=== PATIENT | female | born 1965 | race Caucasian/White ===

== ENCOUNTER 2017-03-09 01:18 | Inpatient (IN) | payer MEDICAID ==
[2017-03-09] MEDS ORDERED: Sodium Chloride 0.9% 1,000 ML IV ONE (01:34)
--- NOTE | 2017-03-09 01:34 | C.PDOC ---
History Of Present Illness Patient presents to the ED complaining of mid-epigastric pain that began prior to arrival. Patient also complains of nausea and vomiting. She describes the pain as sharp and stabbing. Patient reports she went out to eat tonight a few hours prior to arrival. Patient denies fever, chills, chest pain, shortness of breath, or diarrhea. Time Seen by Provider: 03/09/17 01:34 Chief Complaint (Nursing): Abdominal Pain History Per: Patient History/Exam Limitations: no limitations Onset/Duration Of Symptoms: Hrs (prior to arrival) Current Symptoms Are (Timing): Still Present Context: Food Severity: Mild Pain Scale Rating Of: 3 Location Of Pain/Discomfort: Epigastric Radiation Of Pain To:: None Quality Of Discomfort: Sharp, Stabbing, "Pain" Associated Symptoms: Nausea, Vomiting Exacerbating Factors: None Alleviating Factors: None Last Bowel Movement: Today Recent travel outside of the [place]: No Additional History Per: Patient Past Medical History Reviewed: Historical Data, Nursing Documentation, Vital Signs Vital Signs: Last Vital Signs Temp 98.2 F 03/09/17 16:36 Pulse 83 03/09/17 20:10 Resp 20 03/09/17 16:36 BP 158/98 H 03/09/17 20:10 Pulse Ox 96 03/09/17 14:22 - Medical History PMH: HTN, Sleep Apnea Family History: States: No Known Family Hx - Social History Hx Alcohol Use: No Hx Substance Use: No - Immunization History Hx Tetanus Toxoid Vaccination: No Hx Influenza Vaccination: No Hx Pneumococcal Vaccination: No Review Of Systems Constitutional: Negative for: Fever, Chills Cardiovascular: Negative for: Chest Pain Respiratory: Negative for: Shortness of Breath Gastrointestinal: Positive for: Nausea, Vomiting, Abdominal Pain. Negative for : Diarrhea Physical Exam - Physical Exam Appears: Non-toxic, No Acute Distress Skin: Warm, Dry Head: Atraumatic, Normacephalic Eye(s): bilateral: PERRL, EOMI Oral Mucosa: Moist Neck: Supple Chest: Symmetrical Cardiovascular: Rhythm Regular Respiratory: No Rales, No Rhonchi, No Wheezing Gastrointestinal/Abdominal: Soft, Tenderness (mid-epigastric), No Guarding, No Rebound Back: No CVA Tenderness Extremity: Bilateral: Atraumatic Neurological/Psych: Oriented x3 ED Course And Treatment - Laboratory Results Result Diagrams: 03/09/17 02:09 04/25/17 02:09 ECG: Interpreted By Me, Viewed By Me ECG Rhythm: Sinus Rhythm (81), Nonspecific Changes O2 Sat by Pulse Oximetry: 98 (room air) Pulse Ox Interpretation: Normal Progress Note: Plan: -EKG. -Labs. -Morphine, Pepcid, IV fluids, Zofran Disposition Discussed With Dr.: Nikki Chino Counseled Patient/Family Regarding: Studies Performed, Diagnosis - Disposition Disposition: HOSPITALIZED Disposition Time: 01:34 Condition: FAIR - Clinical Impression Clinical Impression: Abdominal pain, Acute cholecystitis - Scribe Statement The provider has reviewed the documentation as recorded by the Scribe Tina Joseph Provider Attestation: All medical record entries made by the Scribe were at my direction and personally dictated by me. I have reviewed the chart and agree that the record accurately reflects my personal performance of the history, physical exam, medical decision making, and the department course for this patient. I have also personally directed, reviewed, and agree with the discharge instructions and disposition. Decision To Admit - Pt Status Changed To: Hospital Disposition Of: Inpatient - Admit Certification Admit to Inpatient:: After my assessment, the patient will require hospitalization for at least two midnights. This is because of the severity of symptoms shown, intensity of services needed, and/or the medical risk in this patient being treated as an outpatient. - InPatient: Physician Admission Certification:: After my assessment, the patient will require hospitalization for at least two midnights. This is because of the severity of symptoms shown, intensity of services needed, and/or the medical risk in this patient being treated as an outpatient. - . Bed Request Type: Regular Admitting Physician: Nikki Chino Patient Diagnosis: Abdominal pain, Acute cholecystitis
[2017-03-09] MEDS ORDERED: Sodium Chloride 0.9% 1,000 ML ONE (02:02)
[2017-03-09 02:12] LABS: BASO % 0.6 % (0.0-2.0); EOS # 0.3 K/uL (0.0-0.7); EOS % 3.3 % (0.0-4.0); HEMATOCRIT 37.3 % (34.0-47.0); LYMPH # 1.2 K/uL (1.0-4.3); MEAN CELL VOLUME 83.7 fL (81.0-99.0); MEAN CORPUSCULAR HEMOGLOBIN 27.5 pg (27.0-31.0); MEAN CORPUSCULAR HGB CONC 32.8 g/dL (33.0-37.0); MEAN PLATELET VOLUME 8.6 fL (7.2-11.7); MONO # 0.7 K/uL (0.0-0.8); MONO % 8.9 % (0.0-10.0); RED CELL DISTRIBUTION WIDTH 13.3 % (11.5-14.5); WHITE BLOOD COUNT 7.7 K/uL (4.8-10.8)
[2017-03-09 02:21] LABS: RBC URINE 3 /hpf (0-3); URINE BILIRUBIN NEGATIVE (NEGATIVE); URINE BLOOD NEGATIVE (NEGATIVE); URINE CALCIUM OXALATE CRYSTALS MANY /hpf (<OCC); URINE COLOR Yellow (YELLOW); URINE GLUCOSE (UA) NORMAL (Normal); URINE KETONE NEGATIVE (NEGATIVE); URINE LEUKOCYTE ESTERASE NEG Leu/uL (Negative); URINE PROTEIN NEGATIVE (NEGATIVE); URINE UROBILINOGEN NORMAL mg/dL (0.2-1.0); WBC URINE 2 /hpf (0-5)
[2017-03-09 02:54] LABS: CHLORIDE 97 mmol/L (98-107); SODIUM 137 mmol/L (132-148)
[2017-03-09 02:55] LABS: POTASSIUM 3.7 mmol/L (3.6-5.2)
[2017-03-09 02:57] LABS: ALB/GLOB RATIO 1.3 (1.0-2.1); ALKALINE PHOSPHATASE 116 U/L (38-126); ALT/SGPT 27 U/L (9-52); AST/SGOT 25 U/L (14-36); BILIRUBIN,TOTAL 0.3 mg/dL (0.2-1.3); BLOOD UREA NITROGEN 13 mg/dL (7-17); CALCIUM 8.7 mg/dl (8.6-10.4); CARBON DIOXIDE 28 mmol/L (22-30); GFR AFRICAN-AMERICAN > 60; GLUCOSE,RANDOM 151 mg/dL (65-105)
[2017-03-09] MEDS ORDERED: Iodixanol 320 MG/ML 100 ML BOTTLE IV ONE (05:16)
--- NOTE | 2017-03-09 06:43 | CT ---
EXAM: CT Abdomen and Pelvis With Intravenous Contrast CLINICAL HISTORY: 51 years old, female; Pain; Abdominal pain and other: Mid upper abd; Prior surgery; Surgery type: and hernia; Additional info: Abd pain TECHNIQUE: Axial computed tomography images of the abdomen and pelvis with intravenous contrast. This CT exam was performed using one or more of the following dose reduction techniques: automated exposure control, adjustment of the mA and/or kV according to patient size, and/or use of iterative reconstruction technique. Coronal and sagittal reformatted images were created and reviewed. CONTRAST: 100 mL of [id number] administered intravenously. COMPARISON: No relevant prior studies available. FINDINGS: Lower thorax: Mild cardiomegaly. Minimal atelectasis/scarring. Small hiatal hernia. ABDOMEN: Liver: Unremarkable. No mass. Gallbladder and bile ducts: Calcified gallstones. Moderate gallbladder wall thickening. No ductal dilation. Pancreas: No ductal dilation. No mass. Spleen: No splenomegaly. Adrenals: No mass. Kidneys and ureters: No mass. No hydronephrosis. Stomach and bowel: Underdistention of LEFT colon. No definite mural thickening. No obstruction. Appendix: Normal caliber. No inflammation. PELVIS: Bladder: Unremarkable. Reproductive: Hysterectomy. ABDOMEN and PELVIS: Intraperitoneal space: No significant fluid collection. No free air. Bones/joints: No acute fracture. Soft tissues: Unremarkable. Vasculature: Unremarkable. No abdominal aortic aneurysm. Lymph nodes: No pathologically enlarged lymph nodes. IMPRESSION: 1. Findings suggestive of acute cholecystitis. Suggest ultrasound. 2. Incidental/non-acute findings are described above.
[2017-03-09] MEDS ORDERED: Metoprolol Succinate 50 mg XL Tab PO ONE (08:25)
[2017-03-09] MEDS ORDERED: HYDROmorphone 1 mg/ml ISec ONE (08:25)
[2017-03-09] MEDS: HYDROmorphone 1 mg/ml ISec IVP PRN (08:30)
[2017-03-09] MEDS: Metoprolol Succinate 50 mg XL Tab PO SCH ×2 (08:30→18:35)
--- NOTE | 2017-03-09 10:13 | US ---
HISTORY: cholelithiasis; r/o acute cholecystitis COMPARISON: March 09, 2017. CT abdomen and pelvis. None. TECHNIQUE: Sonographic evaluation of the abdomen. FINDINGS: LIVER: Measures 17.6 cm. Patent portal vein. Portal venous flow: Hepatopetal. Unremarkeable echogenicity of the liver parenchyma. No mass. No intrahepatic bile duct dilatation. GALLBLADDER: Cholelithiasis, gallbladder wall thickening and positive sonographic Sood's sign presumptive evidence for acute cholecystitis. COMMON BILE DUCT: Measures 5.2 mm. No stones. No dilatation. PANCREAS: Unremarkable as visualized. No mass. No ductal dilatation. RIGHT KIDNEY: Measures 4.3 x 10.5cm. Normal echogenicity. No calculus, mass, or hydronephrosis. LEFT KIDNEY: Measures 5.1 x 10.0cm. Normal echogenicity. No calculus, mass, or hydronephrosis. SPLEEN: Normal in size and contour. No mass. AORTA: No aneurysmal dilatation. IVC: Unremarkable. OTHER FINDINGS: None. IMPRESSION: Cholelithiasis/sonographic findings of acute cholecystitis.
--- NOTE | 2017-03-09 10:41 | CP.PCM.CON ---
Addendum entered and electronically signed by Katie Waters DO 03/09/17 14:06: OR tomorrow for [facility] Original Note: <Katie Waters - Last Filed: 03/09/17 10:35> History of Present Illness - History of Present Illness History of Present Illness: General Surgery Dr. Nassar HPI: 51 y/o F w/ PMHx of HTN, HAO presents to the ED w/ c/o acute onset abd pain, nausea, and vomiting. Pain began around 8pm last evening. Pt states pain began in her back and moved around to her abd. When asked to point to the area of worst pain, pt indicates epigastric area w/ radiation into RUQ. Pain is constant. Pt has never before had this pain. Pt admits to 2 episodes NBNB emesis before arriving in the ED. Pt admits to SOB 2/2 pain. denies F/C, CP , D/C. PMHx: HTN, HAO Meds: reviewed in chart NKDA PSHx: , hysterectomy, ventral hernia repair SHx: denies Tobacco, EtOH, Drugs FHx: unknown Review of Systems - Review of Systems All systems: reviewed and no additional remarkable complaints except (see HPI) Past Patient History - Past Medical History & Family History Past Medical History?: Yes - Past Social History Smoking Status: Never Smoked - CARDIAC Hx Hypertension: Yes - PULMONARY Hx Sleep Apnea: Yes - MUSCULOSKELETAL/RHEUMATOLOGICAL Hx Falls: No - PSYCHIATRIC Hx Substance Use: No - SURGICAL HISTORY Hx Section: Yes Hx Herniorrhaphy: Yes Hx Hysterectomy: Yes - ANESTHESIA Hx Anesthesia: Yes Hx Anesthesia Reactions: No Meds Allergies/Adverse Reactions: Allergies Allergy/AdvReac Type Severity Reaction Status Date / Time No Known Allergies Allergy Verified 03/09/17 01:31 - Medications Medications: Current Medications Famotidine (Pepcid) 40 mg PO DAILY [facility] Hydromorphone HCl (Dilaudid) 0.5 mg IVP Q6H PRN PRN Reason: Pain, severe (8-10) Losartan Potassium (Cozaar) 100 mg PO DAILY [facility] Last Admin: 03/09/17 08:29 Dose: 100 mg Metoprolol Succinate (Toprol Xl) 50 mg PO BID [facility] Last Admin: 03/09/17 08:30 Dose: 50 mg Physical Exam - Constitutional Appears: Non-toxic, No Acute Distress - Head Exam Head Exam: NORMAL INSPECTION - Eye Exam Eye Exam: Normal appearance - ENT Exam ENT Exam: Mucous Membranes Moist - Respiratory Exam Respiratory Exam: Clear to Auscultation Bilateral, NORMAL BREATHING PATTERN. absent: Accessory Muscle Use, Respiratory Distress - Cardiovascular Exam Cardiovascular Exam: REGULAR RHYTHM. absent: Bradycardia, Tachycardia - GI/Abdominal Exam GI & Abdominal Exam: Guarding (vomuntary), Soft, Tenderness (TTP epigastric & RUQ). absent: Distended Additional comments: midline suprapubic scar present (+) Sood's sign - Extremities Exam Extremities exam: Negative for: pedal edema, tenderness - Neurological Exam Neurological exam: Alert, Oriented x3 - Psychiatric Exam Psychiatric exam: Normal Affect, Normal Mood - Skin Skin Exam: Dry, Intact, Normal Color, Warm Additional comments: see abd exam Results - Vital Signs Recent Vital Signs: Last Vital Signs Temp 98.6 F 03/09/17 01:26 Pulse 78 03/09/17 07:56 Resp 18 03/09/17 07:56 BP 198/103 H 03/09/17 07:56 Pulse Ox 97 03/09/17 07:56 - Labs Result Diagrams: 03/09/17 02:09 03/09/17 02:09 - EKG Data EKG shows normal: Sinus rhythm Rate: Normal - Imaging and Cardiology CT scan - abdomen Status: Image reviewed by me, Report reviewed by me US - abdomen Status: Image reviewed by me, Report reviewed by me Assessment & Plan - Assessment and Plan (Free Text) Assessment: 51 y/o F w/ abd pain 2/2 symptomatic cholelithiasis vs acute cholecystitis - Abd US: GB wall thickening, cholelithiasis, sonographic Sood's sign - CT A/P: cholelithiasis, GB wall thickening - Zosyn 3.375 Q8 for acute cholecystitis - NPO, IVF - pain management - anti-emetic - f/u w/ GI - continue medical management - GI/DVT PPx Will discuss w/ Dr. Cesario Waters DO PGY1 <Grant Nassar - Last Filed: 03/10/17 20:11> Meds - Medications Medications: Current Medications Clonidine HCl (Catapres) 0.2 mg PO DAILY [facility] Last Admin: 03/10/17 10:07 Dose: 0.2 mg Enoxaparin Sodium (Lovenox) 40 mg SC DAILY [facility] Famotidine (Pepcid) 40 mg PO DAILY [facility] Last Admin: 03/10/17 10:09 Dose: 40 mg Hydromorphone HCl (Dilaudid) 0.5 mg IVP Q6H PRN PRN Reason: Pain, severe (8-10) Sodium Chloride (Sodium Chloride 0.9%) 1,000 mls @ 125 mls/hr IV .Q8H [facility] Last Admin: 03/10/17 06:51 Dose: 125 mls/hr Piperacillin Sod/Tazobactam Sod (Zosyn 3.375 Gm Iv Premix) 3.375 gm in 50 mls @ 100 mls/hr IVPB Q6H [facility] Last Admin: 03/10/17 15:25 Dose: Not Given Losartan Potassium (Cozaar) 100 mg PO DAILY [facility] Last Admin: 03/10/17 10:07 Dose: 100 mg Metoprolol Succinate (Toprol Xl) 50 mg PO BID [facility] Last Admin: 03/10/17 18:07 Dose: 50 mg Ondansetron HCl (Zofran Inj) 4 mg IVP Q4 PRN PRN Reason: Nausea/Vomiting Results - Vital Signs Recent Vital Signs: Last Vital Signs Temp 98 F 03/10/17 17:13 Pulse 90 03/10/17 17:13 Resp 20 03/10/17 17:13 BP 117/77 03/10/17 17:13 Pulse Ox 95 03/10/17 17:13 - Labs Result Diagrams: 03/10/17 07:05 03/10/17 07:05 Labs: Laboratory Results - last 24 hr 03/10/17 03/10/17 03/10/17 02:57 07:05 07:05 WBC 11.0 H RBC 4.72 Hgb 12.7 Hct 39.5 MCV 83.7 MCH 26.9 L MCHC 32.1 L RDW 13.3 Plt Count 307 MPV 8.8 Sodium 140 Potassium 3.8 Chloride 101 Carbon Dioxide 27 Anion Gap 16 BUN 8 Creatinine 0.7 Est GFR ( Amer) > 60 Est GFR (Non-Af Amer) > 60 Random Glucose 116 H Calcium 8.5 L Total Bilirubin 1.1 AST 39 H D ALT 33 Alkaline Phosphatase 97 Total Protein 7.2 Albumin 3.9 Globulin 3.2 Albumin/Globulin Ratio 1.2 TSH 3rd Generation 2.72 Urine Color Straw Urine Clarity Clear Urine pH 6.0 Ur Specific [place] 1.010 Urine Protein Negative Urine Glucose (UA) Normal Urine Ketones Negative Urine Blood Negative Urine Nitrate Negative Urine Bilirubin Negative Urine Urobilinogen Normal Ur Leukocyte Esterase Neg Urine WBC (Auto) < 1 Ur Squamous Epith Cells 2 Urine HCG, Qual Negative Attending/Attestation - Attestation I have personally seen and examined this patient.: Yes I have fully participated in the care of the patient.: Yes I have reviewed all pertinent clinical information: Yes Notes (Text): 03/10/17 20:10 Pt was seen and examined at bedside on 03/09/17 Agree with above note and assessment. Pt with Acute Cholecystitis Consent NPO, IVf, IV antibiotics Plan d.w pt in detail. \ Risk and benefit explained in detail.
--- NOTE | 2017-03-09 11:23 | CP.PCM.CON ---
<Zachery Guthrie - Last Filed: 03/09/17 13:25> History of Present Illness - History of Present Illness History of Present Illness: PGY4 GI Fellow Consult Note Patient is a 51yo female with PMHx significant for HTN, HAO who presented to the ED with complaint of abdominal pain. The patient developed pain between her scapulas last night at around 11PM. In the hours that followed, pain began to radiate to both flanks and eventually to her abdomen (epigastrium). At that point, pain became constant, stabbing in nature and radiated from the epigastrium toward the RUQ/LUQ. She admitted to nausea along with 2 episodes of bilious emesis. Patient took an Alleve without relief of symptoms and decided to come to the ED given severity of pain. She denies ever having symptoms like this in the past. Her dinner last night was bland and no other family members were ill today. Admits to constipation, typically passing stool 1-2 times per week. Denies any weight loss/gain, hematochezia, melena, reflux/dyspepsia. PMHx: See HPI PSHx: MARCUS, , hernia repair FHx: Father - CAD Social: Denies tobacco, EtOH or illicit drug use Endo: No prior endoscopic evaluation Review of Systems - Constitutional Constitutional: absent: Anorexia, Chills, Fever - EENT Eyes: absent: Change in Vision Nose/Mouth/Throat: absent: Sore Throat - Cardiovascular Cardiovascular: absent: Chest Pain, Dyspnea, Edema - Respiratory Respiratory: absent: Cough, Dyspnea, Excessive Mucous Production - Gastrointestinal Gastrointestinal: Abdominal Pain, Constipation, Cramping, Nausea, Vomiting. absent: Bloating, Diarrhea, Dyspepsia, Dysphagia, Heartburn, Hematemesis, Hematochezia, Melena - Genitourinary Genitourinary: absent: Dysuria, Urinary Frequency, Urinary Urgency - Musculoskeletal Musculoskeletal: Back Pain, Myalgias. absent: Neck Pain - Integumentary Integumentary: absent: New Lesions, Rash - Neurological Neurological: absent: Dizziness, Numbness, Focal Weakness - Psychiatric Psychiatric: absent: Anxiety, Depression - Endocrine Endocrine: absent: Polydipsia, Polyphagia, Polyuria - Hematologic/Lymphatic Hematologic: absent: Easy Bleeding, Easy Bruising, Lymphadenopathy Past Patient History - Past Medical History & Family History Past Medical History?: Yes - Past Social History Smoking Status: Never Smoked - CARDIAC Hx Hypertension: Yes - PULMONARY Hx Sleep Apnea: Yes - MUSCULOSKELETAL/RHEUMATOLOGICAL Hx Falls: No - PSYCHIATRIC Hx Substance Use: No - SURGICAL HISTORY Hx Section: Yes Hx Herniorrhaphy: Yes Hx Hysterectomy: Yes - ANESTHESIA Hx Anesthesia: Yes Hx Anesthesia Reactions: No Meds Allergies/Adverse Reactions: Allergies Allergy/AdvReac Type Severity Reaction Status Date / Time No Known Allergies Allergy Verified 03/09/17 01:31 - Medications Medications: Current Medications Famotidine (Pepcid) 40 mg PO DAILY [facility] Last Admin: 03/09/17 10:43 Dose: 40 mg Hydromorphone HCl (Dilaudid) 0.5 mg IVP Q6H PRN PRN Reason: Pain, severe (8-10) Losartan Potassium (Cozaar) 100 mg PO DAILY [facility] Last Admin: 03/09/17 08:29 Dose: 100 mg Metoprolol Succinate (Toprol Xl) 50 mg PO BID [facility] Last Admin: 03/09/17 08:30 Dose: 50 mg Physical Exam - Constitutional Appears: Non-toxic, No Acute Distress, Other (obese) - Eye Exam Eye Exam: EOMI, PERRL - ENT Exam ENT Exam: Mucous Membranes Moist - Respiratory Exam Respiratory Exam: Clear to Auscultation Bilateral. absent: Rales, Rhonchi, Wheezes - Cardiovascular Exam Cardiovascular Exam: RRR, +S1, +S2 - GI/Abdominal Exam GI & Abdominal Exam: Normal Bowel Sounds, Soft, Tenderness (RUQ). absent: Distended, Firm, Guarding, Organomegaly, Rigid Additional comments: +Sood sign - Extremities Exam Extremities exam: Positive for: normal inspection. Negative for: pedal edema - Neurological Exam Neurological exam: Alert, Oriented x3 - Psychiatric Exam Psychiatric exam: Normal Affect, Normal Mood - Skin Skin Exam: Dry, Warm Results - Vital Signs Recent Vital Signs: Last Vital Signs Temp 97.5 F L 03/09/17 11:04 Pulse 69 03/09/17 11:04 Resp 20 03/09/17 11:04 BP 133/88 03/09/17 11:04 Pulse Ox 97 03/09/17 11:04 - Labs Result Diagrams: 03/09/17 02:09 03/09/17 02:09 Assessment & Plan - Assessment and Plan (Free Text) Assessment: Patient is a 51yo female with PMHx significant for HTN, HAO who presented to the ED with complaint of abdominal pain -Abdominal pain -Hypertensive urgency -Morbid obesity -HAO Plan: -Imaging (CT and U/S) suggestive of acute cholecystitis with cholelithiasis noted -No ductal abnormalities noted, LFTs unremarkable -Lipase WNL, no imaging findings c/w acute pancreatitis -No plan for endoscopic evaluation at this time -Given imaging findings and positive Sood sign on examination, agree with surgical evaluation; appreciate recommendations -Defer diet recommendations to surgical service in case they plan for surgical intervention -Would benefit from outpatient eval for screening colonoscopy - Date & Time Date: 03/09/17 Time: 11:15 <Yogi Ellison - Last Filed: 03/09/17 13:43> Meds - Medications Medications: Current Medications Famotidine (Pepcid) 40 mg PO DAILY [facility] Last Admin: 03/09/17 10:43 Dose: 40 mg Hydromorphone HCl (Dilaudid) 0.5 mg IVP Q6H PRN PRN Reason: Pain, severe (8-10) Losartan Potassium (Cozaar) 100 mg PO DAILY [facility] Last Admin: 03/09/17 08:29 Dose: 100 mg Metoprolol Succinate (Toprol Xl) 50 mg PO BID [facility] Last Admin: 03/09/17 08:30 Dose: 50 mg Results - Vital Signs Recent Vital Signs: Last Vital Signs Temp 98.0 F 03/09/17 12:55 Pulse 78 03/09/17 12:55 Resp 19 03/09/17 12:55 BP 198/109 H 03/09/17 12:55 Pulse Ox 98 03/09/17 12:55 - Labs Result Diagrams: 03/09/17 02:09 03/09/17 02:09 Labs: Laboratory Results - last 24 hr 03/09/17 03/09/17 11:16 11:16 Hemoglobin A1c 5.9 Triglycerides 96 Cholesterol 200 H LDL Cholesterol Direct 123 HDL Cholesterol 45 Attending/Attestation - Attestation I have personally seen and examined this patient.: Yes I have fully participated in the care of the patient.: Yes I have reviewed all pertinent clinical information: Yes Notes (Text): 03/09/17 13:36 I have seen and examined patient with GI fellow. Agree with above documentation with the following additions. In brief, this is a 51 year old female with history of HTN, arthritis who presents to hospital with complaint of abdominal pain which began yesterday at 11 pm. Prior to this she was in usual state of health. She describes the pain as sharp, 6/10 intensity which initially began in her mid scapula and radiated to right flank and abdominal area. This was associated with nausea and two episodes of non-bloody emesis. She is typically constipated and has a bowel movement once per week. She otherwise denies fever/chills, weight loss, sick contacts, unusual food consumption, or change in bowel habits. No prior endoscopic evaluation. HTN Arthritis Obesity Abdominal pain - acute cholecystitis with +Sood's on physical examination CT and US imaging reviewed by me showing thickened GB wall with gabriel- cholecystic fluid consistent with acute cholecystitis - NPO - Suggest antibiotic therapy given clinical presentation with radiographic findings - Obtain blood culture - Surgical consultation has been requested, will follow up results - No GI intervention planned, patient would benefit from elective outpatient age appropriate screening colonoscopy following resolution of acute symptoms
[2017-03-09 11:47] LABS: CHOLESTEROL 200 mg/dL (0-199)
[2017-03-09] MEDS ORDERED: Pneumococcal 23-Valent Vaccine IM ONE (12:06)
--- NOTE | 2017-03-09 12:52 | RAD ---
HISTORY: Preop. Portable study 12:25. COMPARISON: 08/19/2016. FINDINGS: LUNGS: No active pulmonary disease. PLEURA: No significant pleural effusion identified, no pneumothorax apparent. CARDIOVASCULAR: Cardiomegaly. No evidence of acute, significant cardiovascular disease. OSSEOUS STRUCTURES: No significant abnormalities. VISUALIZED UPPER ABDOMEN: Normal. OTHER FINDINGS: None. IMPRESSION: No active disease. No significant interval change compared to the prior examination(s).
[2017-03-09] MEDS ORDERED: Piperacill/Tazo 3.375gm in Dex 50 ML IVPB SCH (14:15)
[2017-03-09] MEDS: Sodium Chloride 0.9% 1,000 ML IV SCH ×2 (15:55→23:17)
[2017-03-09] MEDS: PIPERACILL IVPB SCH ×2 (16:19→21:30)
[2017-03-09] MEDS: TAZO IVPB SCH ×2 (16:19→21:30)
[2017-03-09] MEDS: DEX IVPB SCH ×2 (16:19→21:30)
[2017-03-10] MEDS: DEX IVPB SCH ×4 (03:04→21:40)
[2017-03-10] MEDS: TAZO IVPB SCH ×4 (03:04→21:40)
[2017-03-10] MEDS: PIPERACILL IVPB SCH ×4 (03:04→21:40)
[2017-03-10 03:07] LABS: URINE BILIRUBIN NEGATIVE (NEGATIVE); URINE BLOOD NEGATIVE (NEGATIVE); URINE COLOR Straw (YELLOW); URINE GLUCOSE (UA) NORMAL (Normal); URINE KETONE NEGATIVE (NEGATIVE); URINE LEUKOCYTE ESTERASE NEG Leu/uL (Negative); URINE PROTEIN NEGATIVE (NEGATIVE); URINE UROBILINOGEN NORMAL mg/dL (0.2-1.0); WBC URINE < 1 /hpf (0-5)
[2017-03-10] MEDS: Sodium Chloride 0.9% 1,000 ML IV SCH (06:51)
[2017-03-10 07:12] LABS: HEMATOCRIT 39.5 % (34.0-47.0); MEAN CELL VOLUME 83.7 fL (81.0-99.0); MEAN CORPUSCULAR HEMOGLOBIN 26.9 pg (27.0-31.0); MEAN CORPUSCULAR HGB CONC 32.1 g/dL (33.0-37.0); MEAN PLATELET VOLUME 8.8 fL (7.2-11.7); RED CELL DISTRIBUTION WIDTH 13.3 % (11.5-14.5)
[2017-03-10 07:31] LABS: CHLORIDE 101 mmol/L (98-107); POTASSIUM 3.8 mmol/L (3.6-5.2); SODIUM 140 mmol/L (132-148)
[2017-03-10 07:34] LABS: ALB/GLOB RATIO 1.2 (1.0-2.1); ALKALINE PHOSPHATASE 97 U/L (38-126); ALT/SGPT 33 U/L (9-52); AST/SGOT 39 U/L (14-36); BILIRUBIN,TOTAL 1.1 mg/dL (0.2-1.3); BLOOD UREA NITROGEN 8 mg/dL (7-17); CARBON DIOXIDE 27 mmol/L (22-30); GFR AFRICAN-AMERICAN > 60; GLUCOSE,RANDOM 116 mg/dL (65-105); TOTAL PROTEIN 7.2 g/dL (6.3-8.3)
[2017-03-10 07:35] LABS: CALCIUM 8.5 mg/dl (8.6-10.4)
[2017-03-10 07:56] LABS: THYROID STIMULATING HORMONE 2.72 mIU/L (0.46-4.68)
--- NOTE | 2017-03-10 09:19 | HP ---
CHIEF COMPLAINT: Abdominal pain. HISTORY OF PRESENT ILLNESS: The patient is a 51-year-old female, came in Emergency Room of [facility] with mid epigastric pain that began prior to arrival. The patient also complaining of nausea and vomiting. She describes the pain as sharp and stabbing. The patient reports she went out to eat tonight a few hours prior to arrival. The patient denies fever, chills, chest pain, shortness of breath. No diarrhea, no hematuria, no hematochezia. The pain was still present when I saw patient in the ER, was on the way to ultrasound. Pain scale rating was 3. It was sharp, stabbing pain. Complaining of nausea, vomiting. PAST MEDICAL HISTORY: Hypertension, sleep apnea. FAMILY HISTORY: Father and mother noncontributory. HABITS: No smoking, no drugs, no ethanol. ALLERGIES: The patient is not allergic with any medications. HOME MEDICATIONS: Reviewed by me. Metoprolol, losartan. The patient is complaining of nausea, vomiting, abdominal pain. No diarrhea. PHYSICAL EXAMINATION: VITAL SIGNS: Temperature 98.2, pulse 83, respiratory rate 20, blood pressure 120/96, pulse oximetry 96%. HEENT: Head normocephalic, atraumatic. Eyes: PERRLA. Extraocular muscles intact. Conjunctivae pink. Eyelids unremarkable. Nose patent. NECK: Supple. No carotid bruit, no JVD, no thyromegaly. CHEST: Bilaterally symmetrical. HEART: S1, S2 positive. LUNGS: Clear to auscultation. ABDOMEN: Soft. Tender in the epigastric area. No guarding, no rebound. EXTREMITIES: Bilaterally no edema, no cyanosis, atraumatic. NEUROLOGIC: The patient is oriented x 3. Cranial nerves II-XII are grossly intact. LABORATORIES: White blood cells 7.7, hemoglobin 12.2, hematocrit 37.3, platelets 274. Sodium 137, potassium 3.7, BUN noted , creatinine 0.6, glucose 151. ASSESSMENT AND PLAN: The patient is a 51-year-old female with hyperglycemia, came with abdominal pain, acute cholecystitis. Went for CAT scan of abdomen and pelvis, looks like acute cholecystitis, suggested ultrasound. Abdominal ultrasound is reviewed by me also, cholelithiasis, sonographic finding of acute cholecystitis. Seen by Dr. Yogi Ellison, hand bunch maker. The patient has history of hypertension, obstructive sleep apnea syndrome, family history of coronary artery disease, degenerative joint disease, obesity. Suggested antibiotic therapy , presentation radiographic findings. Obtain blood cultures. No gastrointestinal intervention planned. The patient would benefit from elective outpatient age-appropriate screening colonoscopy following resolution of the acute symptoms. Seen by the surgical team also. According to them, patient will go to OR tomorrow for laparoscopic cholecystectomy as per general surgery. Gastrointestinal and deep venous thrombosis prophylaxis. Will follow up. Nikki Chino MD cc: [id number] TT: 03/10/2017 09:19:00 en MTDD
[2017-03-10] MEDS: Metoprolol Succinate 50 mg XL Tab PO SCH ×2 (10:09→18:07)
--- NOTE | 2017-03-10 11:18 | CP.PCM.PN ---
<KaitlinmayapalomaZachery - Last Filed: 03/10/17 11:15> Subjective - Date & Time of Evaluation Date of Evaluation: 03/10/17 Time of Evaluation: 06:10 - Subjective Subjective: PGY4 GI Fellow Progress Note Patient seen and examined bedside this morning. The patient admits to improvement in abdominal pain which is predominantly in the RUQ at this time. Denies any fever, chills, nausea, vomiting overnight. She is NPO for planned surgical intervention today. 12 system ROS performed and negative except where stated. Objective - Vital Signs/Intake and Output Vital Signs (last 24 hours): Temp Pulse Resp BP Pulse Ox 99 F 98 H 18 155/103 H 96 03/10/17 08:00 03/10/17 10:10 03/10/17 10:10 03/10/17 10:10 03/10/17 10:10 Intake and Output: 03/10/17 03/10/17 06:59 18:59 Intake Total 3290 Balance 3290 - Medications Medications: Current Medications Clonidine HCl (Catapres) 0.2 mg PO DAILY [facility] Last Admin: 03/10/17 10:07 Dose: 0.2 mg Enoxaparin Sodium (Lovenox) 40 mg SC DAILY [facility] Famotidine (Pepcid) 40 mg PO DAILY [facility] Last Admin: 03/10/17 10:09 Dose: 40 mg Hydromorphone HCl (Dilaudid) 0.5 mg IVP Q6H PRN PRN Reason: Pain, severe (8-10) Sodium Chloride (Sodium Chloride 0.9%) 1,000 mls @ 125 mls/hr IV .Q8H [facility] Last Admin: 03/10/17 06:51 Dose: 125 mls/hr Piperacillin Sod/Tazobactam Sod (Zosyn 3.375 Gm Iv Premix) 3.375 gm in 50 mls @ 100 mls/hr IVPB Q6H [facility] Last Admin: 03/10/17 10:18 Dose: 100 mls/hr Losartan Potassium (Cozaar) 100 mg PO DAILY [facility] Last Admin: 03/10/17 10:07 Dose: 100 mg Metoprolol Succinate (Toprol Xl) 50 mg PO BID [facility] Last Admin: 03/10/17 10:09 Dose: 50 mg - Labs Labs: 03/10/17 07:05 03/10/17 07:05 PT 10.8 SECONDS (9.7-12.2) 03/09/17 02:09 INR 1.0 03/09/17 02:09 - Constitutional Appears: Non-toxic, No Acute Distress, Other (obese) - Eye Exam Eye Exam: EOMI, PERRL - ENT Exam ENT Exam: Mucous Membranes Moist - Respiratory Exam Respiratory Exam: Clear to Ausculation Bilateral. absent: Rales, Rhonchi, Wheezes - Cardiovascular Exam Cardiovascular Exam: RRR, +S1, +S2 - GI/Abdominal Exam GI & Abdominal Exam: Soft, Tenderness (+Sood sign, RUQ tenderness), Normal Bowel Sounds. absent: Distended, Firm, Guarding, Rigid, Organomegaly - Extremities Exam Extremities Exam: Normal Inspection. absent: Pedal Edema - Neurological Exam Neurological Exam: Alert, Awake, Oriented x3 - Psychiatric Exam Psychiatric exam: Normal Affect, Normal Mood - Skin Skin Exam: Dry, Warm Assessment and Plan - Assessment and Plan (Free Text) Assessment: Patient is a 51yo female with PMHx significant for HTN, HAO who presented to the ED with complaint of abdominal pain -Abdominal pain, acute cholecystitis -Hypertensive urgency -Morbid obesity -HAO Plan: -Pt NPO for planned cholecystectomy today -BP remains elevated with diastolic at 103 this AM; recommend improved control of ongoing HTN -No plan for endoscopic evaluation at this time -Would benefit from outpatient eval for screening colonoscopy -No further recommendations at this time; will sign off <Aliyah Gutiérrez - Last Filed: 03/10/17 13:34> Objective - Vital Signs/Intake and Output Vital Signs (last 24 hours): Temp Pulse Resp BP Pulse Ox 98.9 F 90 20 109/72 96 03/10/17 12:21 03/10/17 12:21 03/10/17 12:21 03/10/17 12:21 03/10/17 12:21 Intake and Output: 03/10/17 03/10/17 06:59 18:59 Intake Total 3290 Balance 3290 - Medications Medications: Current Medications Clonidine HCl (Catapres) 0.2 mg PO DAILY [facility] Last Admin: 03/10/17 10:07 Dose: 0.2 mg Enoxaparin Sodium (Lovenox) 40 mg SC DAILY [facility] Famotidine (Pepcid) 40 mg PO DAILY [facility] Last Admin: 03/10/17 10:09 Dose: 40 mg Hydromorphone HCl (Dilaudid) 0.5 mg IVP Q6H PRN PRN Reason: Pain, severe (8-10) Sodium Chloride (Sodium Chloride 0.9%) 1,000 mls @ 125 mls/hr IV .Q8H [facility] Last Admin: 03/10/17 06:51 Dose: 125 mls/hr Piperacillin Sod/Tazobactam Sod (Zosyn 3.375 Gm Iv Premix) 3.375 gm in 50 mls @ 100 mls/hr IVPB Q6H [facility] Last Admin: 03/10/17 10:18 Dose: 100 mls/hr Losartan Potassium (Cozaar) 100 mg PO DAILY [facility] Last Admin: 03/10/17 10:07 Dose: 100 mg Metoprolol Succinate (Toprol Xl) 50 mg PO BID [facility] Last Admin: 03/10/17 10:09 Dose: 50 mg - Labs Labs: 03/10/17 07:05 03/10/17 07:05 PT 10.8 SECONDS (9.7-12.2) 03/09/17 02:09 INR 1.0 03/09/17 02:09 Attending/Attestation - Attestation I have personally seen and examined this patient.: Yes I have fully participated in the care of the patient.: Yes I have reviewed all pertinent clinical information, including history, physical exam and plan: Yes Notes (Text): Patient seen and examined with GI fellow. Agree with his note as documented above with the following additions/exceptions. This is a 51 year old female with PMHx significant for HTN, HAO who presents with abdominal pain due to acute cholecystitis. She has RUQ abdominal pain currently, no nausea or vomiting. She is planned for OR for cholecystectomy today. Her LFTs are unremarkable and bile duct normal on imaging. Further management as per surgical team. She would benefit from outpatient elective screening colonoscopy. Please call with any further questions/concerns. 03/10/17 13:32
[2017-03-10] MEDS ORDERED: ceFAZolin 1 gm FROZEN Premix 2 GM/100 ML ML IVPB ONE (13:04)
[2017-03-10] MEDS ORDERED: Bupivacaine/Epi 0.25%-1:200,000 10 ml PF inj IJ ONE (13:04)
[2017-03-10] MEDS ORDERED: Lidocaine 1% Inj (20ml) ONE (13:05)
[2017-03-10] MEDS ORDERED: Lactated Ringer's 1,000 ML IV ONE ×2 (13:12→15:15)
[2017-03-10] MEDS ORDERED: Midazolam 2 MG/2 ML VIAL ONE (13:16)
[2017-03-10] MEDS ORDERED: Propofol 10 mg/ml Inj (20 ML) ONE (13:16)
[2017-03-10] MEDS ORDERED: Rocuronium 10 mg/ml (5 ml) ONE (14:46)
[2017-03-10] MEDS ORDERED: Neostigmine Methylsulfate 3mg/3ml Syringe IV ONE (15:21)
[2017-03-10] MEDS ORDERED: Morphine 4 MG/ML VIAL ONE (15:27)
--- NOTE | 2017-03-10 15:41 | PCM.SURG1 ---
Surgeon's Initial Post Op Note - Surgeon's Notes Surgeon: Dr. Nassar Marketing Analytics Specialist: Dr. Dias PGY-2, Ruby RIVERA Type of Anesthesia: General Endo, Local Pre-Operative Diagnosis: Acute cholecystitis Operative Findings: Acute necrotic, gangrenous cholecystitis with perihepatic adhesions Post-Operative Diagnosis: Acute gangrenous cholecystitis, gabriel hepatic lesions Operation Performed: Laparoscopic cholecystectomy, lysis of adhesions Specimen/Specimens Removed: gallbladder Estimated Blood Loss: EBL {In ML}: 50 Drains Used: Ruben Post-Op Condition: Fair Date of Surgery/Procedure: 03/10/17 Time of Surgery/Procedure: 15:41
[2017-03-10] MEDS ORDERED: HYDROmorphone 0.5 mg/0.5 ml ISec IVP PRN (15:42)
[2017-03-10] MEDS: Enoxaparin 40 mg Syringe SC SCH (21:41)
[2017-03-11] MEDS: DEX IVPB SCH ×4 (03:14→21:33)
[2017-03-11] MEDS: PIPERACILL IVPB SCH ×4 (03:14→21:33)
[2017-03-11] MEDS: TAZO IVPB SCH ×4 (03:14→21:33)
[2017-03-11] MEDS: Sodium Chloride 0.9% 1,000 ML IV SCH (05:57)
--- NOTE | 2017-03-11 07:16 | OP ---
PROCEDURE DATE: 03/10/2017 PREOPERATIVE DIAGNOSIS: Acute cholecystitis and cholelithiasis. POSTOPERATIVE DIAGNOSES: 1. Acute phlegmonous gangrenous cholecystitis with pericholecystic fluid collection. 2. Extensive postinfectious condition. PROCEDURES: 1. Laparoscopic cholecystectomy. 2. Laparoscopic extensive lysis of adhesions. 3. Laparoscopic drainage of pericholecystic fluid collection. SURGEON: Grant Nassar MD. DRIER AND GRINDER TENDER: BAM Savage. Ruby was present from the beginning of the procedure helping , prepping and draping, placement of port and closure of wound. SECOND LAND MANAGEMENT SUPERVISOR: Thalia Dias, PGY-2 resident. ANESTHESIA: General endotracheal tube anesthesia. ESTIMATED BLOOD LOSS: Around 50 mL DRAINS: A large size Ruben drain was placed. COMPLICATIONS: None. INTRAOPERATIVE FINDINGS: The patient had acute phlegmonous necrotizing cholecystitis with extensive pericholecystic inflammatory changes with fluid collection. INTRAOPERATIVE STEPS: This 51-year-old female was diagnosed with acute cholecystitis and cholelithia sis and patient was consented for laparoscopic cholecystectomy, possible open, brought to the OR, [facility] upon operating table. Due to the previous umbilical hernia repair, the left upper quadrant incis ion was made and the peritoneal cavity was entered. Pneumo was created. A 12 mm port was placed in the midline just below the costal margin and two 5 mm ports were placed in midclavicular and anterior axillary line and another 12 mm port was placed in supraumbilical region. With LigaSure, extensive lysis of adhesions was done and the gallbladder was aspirated. The gallbladder appeared to be extrem david thickened and edematous and there were phlegmonous changes. The gallbladder was retracted crania lly. Gallbladder wall appeared to be extremely necrotizing, edematous and thickened and there were p ericholecystic inflammatory changes as well as fluid collection that was drained and the lysis of adh esions was done. Cystic duct and cystic artery were identified and clipped at 3 places and cut in be tween 2 clips near the gallbladder. The gallbladder was dissected free from the gallbladder fossa, t aken in EndoCatch bag, taken out through the umbilical port site and sent to the table for the pathol ogy. The critical view of safety was identified after top down approach. After proper hemostasis, a 19-Fr ench Ruben drain was placed and the drain was secured to the skin. The supraumbilical wound was clos ed in 2 layers, the fascia with 0 PDS interrupted suture, skin with a 4-0 Monocryl. Dry sterile dres sing was applied. The patient tolerated the procedure well. Count of instruments and gauze was felipe ect. There was no apparent complication. The patient was extubated in the OR, sent to the postanest hesia care unit in stable condition. Grant Nassar MD cc: [id number] TT: 03/11/2017 07:15:57 nn
[2017-03-11 08:00] LABS: BASO % 0.1 % (0.0-2.0); HEMATOCRIT 36.9 % (34.0-47.0); LYMPH # 0.7 K/uL (1.0-4.3); LYMPH % 4.9 % (20.0-40.0); MEAN CELL VOLUME 83.8 fL (81.0-99.0); MEAN CORPUSCULAR HEMOGLOBIN 27.1 pg (27.0-31.0); MEAN CORPUSCULAR HGB CONC 32.4 g/dL (33.0-37.0); MEAN PLATELET VOLUME 8.9 fL (7.2-11.7); MONO # 0.6 K/uL (0.0-0.8); MONO % 4.1 % (0.0-10.0); PLATELET COUNT 286 K/uL (130-400); RED CELL DISTRIBUTION WIDTH 13.4 % (11.5-14.5); WHITE BLOOD COUNT 14.6 K/uL (4.8-10.8)
[2017-03-11 08:15] LABS: CHLORIDE 103 mmol/L (98-107); POTASSIUM 4.3 mmol/L (3.6-5.2); SODIUM 141 mmol/L (132-148)
[2017-03-11 08:18] LABS: ALB/GLOB RATIO 1.1 (1.0-2.1); ALKALINE PHOSPHATASE 95 U/L (38-126); ALT/SGPT 72 U/L (9-52); AST/SGOT 86 U/L (14-36); BILIRUBIN,TOTAL 0.8 mg/dL (0.2-1.3); BLOOD UREA NITROGEN 15 mg/dL (7-17); CALCIUM 8.8 mg/dl (8.6-10.4); CARBON DIOXIDE 27 mmol/L (22-30); GFR AFRICAN-AMERICAN > 60; GLUCOSE,RANDOM 123 mg/dL (65-105); TOTAL PROTEIN 6.8 g/dL (6.3-8.3)
--- NOTE | 2017-03-11 10:29 | PN ---
DATE: 03/10/2017 The patient is a 51-year-old female. The patient was seen and examined on 2016 before surgery in the morning, was sitting on the bedside. Still having pain in the right upper quadrant. Denies fever, chills, nausea, vomiting overnight. The patient is n.p.o. for surgical intervention by Dr. Nassar. No headache, no dizziness. No swelling of the legs. No dyspnea. No hematuria , no hematochezia. PHYSICAL EXAMINATION: VITAL SIGNS: Temperature 98.4, pulse 98, respiratory rate 18, blood pressure 150/103, pulse oximetry 96%. HEENT: Head normocephalic, atraumatic. Eyes, PERRLA. Extraocular muscles intact. Conjunctivae pink. Eyelids unremarkable. Nose patent. NECK: Supple. No carotid bruit, no JVD, no thyromegaly. CHEST: Bilaterally symmetrical. HEART: S1, S2 positive. LUNGS: Clear to auscultation. ABDOMEN: Soft. Bowel sounds present. No organomegaly. EXTREMITIES: No edema, no cyanosis. NEUROLOGIC: The patient is awake, alert, moving all 4 extremities. No focal deficit. MEDICATIONS: Clonidine, Lovenox, Pepcid, Dilaudid, NS, Zosyn, Zocor, Toprol. LABORATORIES: White blood cells 11.0, hemoglobin 12.7, hematocrit 39.5, platelets 307. Sodium 140, potassium 3.8, BUN 8, creatinine 0.7, glucose 116. ASSESSMENT AND PLAN: The patient is a 51-year-old lady with leukocytosis, hyperglycemia, came with abdominal pain in right upper quadrant, history of hypertension, obstructive sleep apnea, came with acute cholecystitis, is n.p.o. to go for OR for cholecystectomy. Liver function test is unremarkable. Bile duct normal on imaging. Seen by GI. According to them, patient can get benefit of outpatient elective screening colonoscopy. Appreciated GI and Dr. Nassar's input. The patient has comorbid obesity. Education done, urged to lose weight. Gastrointestinal and deep venous thrombosis prophylaxis. We will follow up. Nikki Chino MD cc: [id number] TT: 03/11/2017 10:28:55 Confirmation # [id number] Dictation # [id number] en MTDD
[2017-03-11] MEDS: Enoxaparin 40 mg Syringe SC SCH (10:50)
[2017-03-11 11:19] LABS: NEUTROPHIL 97 % (50-75); TOTAL CELLS COUNTED 100
[2017-03-11] MEDS: Metoprolol Succinate 50 mg XL Tab PO SCH ×2 (12:54→17:35)
--- NOTE | 2017-03-11 17:42 | CP.PCM.PN ---
<Katie Waters - Last Filed: 03/11/17 17:39> Subjective - Date & Time of Evaluation Date of Evaluation: 03/11/17 Time of Evaluation: 10:15 - Subjective Subjective: General Surgery Dr. Nassar Pt S&E @bedside. CHRISTIANOEO. tolerating diet. no N/V, F/C. (-)BM Ruben 50cc x24hrs Objective - Vital Signs/Intake and Output Vital Signs (last 24 hours): Temp Pulse Resp BP Pulse Ox 97.8 F 80 20 124/77 96 03/11/17 15:41 03/11/17 15:41 03/11/17 15:41 03/11/17 15:41 03/11/17 15:41 Intake and Output: 03/11/17 03/11/17 06:59 18:59 Intake Total 1700 1250 Output Total 50 40 Balance 1650 1210 - Medications Medications: Current Medications Clonidine HCl (Catapres) 0.2 mg PO DAILY [facility] Last Admin: 03/11/17 10:33 Dose: Not Given Enoxaparin Sodium (Lovenox) 40 mg SC DAILY [facility] Last Admin: 03/11/17 10:50 Dose: 40 mg Famotidine (Pepcid) 40 mg PO DAILY [facility] Last Admin: 03/11/17 10:50 Dose: 40 mg Hydromorphone HCl (Dilaudid) 0.5 mg IVP Q6H PRN PRN Reason: Pain, severe (8-10) Piperacillin Sod/Tazobactam Sod (Zosyn 3.375 Gm Iv Premix) 3.375 gm in 50 mls @ 100 mls/hr IVPB Q6H [facility] Last Admin: 03/11/17 15:23 Dose: 100 mls/hr Losartan Potassium (Cozaar) 100 mg PO DAILY [facility] Last Admin: 03/11/17 12:53 Dose: 100 mg Metoprolol Succinate (Toprol Xl) 50 mg PO BID [facility] Last Admin: 03/11/17 17:35 Dose: 50 mg Ondansetron HCl (Zofran Inj) 4 mg IVP Q4 PRN PRN Reason: Nausea/Vomiting - Labs Labs: 03/11/17 07:35 03/11/17 07:35 PT 10.8 SECONDS (9.7-12.2) 03/09/17 02:09 INR 1.0 03/09/17 02:09 - Constitutional Appears: Non-toxic, No Acute Distress - Head Exam Head Exam: NORMAL INSPECTION - Eye Exam Eye Exam: Normal appearance - ENT Exam ENT Exam: Mucous Membranes Moist - Respiratory Exam Respiratory Exam: NORMAL BREATHING PATTERN. absent: Accessory Muscle Use, Respiratory Distress - GI/Abdominal Exam GI & Abdominal Exam: Soft, Tenderness (mild gabriel-incisonal TTP). absent: Distended, Guarding, Rigid, Rebound Additional comments: dressings c/d/i ruben in place - Neurological Exam Neurological Exam: Alert, Awake, Oriented x3 - Psychiatric Exam Psychiatric exam: Normal Affect, Normal Mood - Skin Skin Exam: Dry, Normal Color, Warm Assessment and Plan - Assessment and Plan (Free Text) Assessment: 51 y/o F POD#1 s/p Lap dora - gangrenous dora --> cont IV Abx - worsening leukocytosis --> F/U AM labs - Advance diet as tolerated - cont pain management - cont anti-emetics - possible D/C tomorrow pending normal WBC Pt discussed w/ Dr. Kathe Waters DO PGY1 <Grant Nassar - Last Filed: 03/12/17 19:59> Objective - Vital Signs/Intake and Output Vital Signs (last 24 hours): Temp Pulse Resp BP Pulse Ox 97.6 F 70 18 119/77 94 L 03/12/17 15:25 03/12/17 15:25 03/12/17 15:25 03/12/17 15:25 03/12/17 15:25 Intake and Output: 03/12/17 03/13/17 18:59 06:59 Output Total 50 Balance -50 - Labs Labs: 03/12/17 07:18 03/12/17 07:18 PT 10.8 SECONDS (9.7-12.2) 03/09/17 02:09 INR 1.0 03/09/17 02:09 Attending/Attestation - Attestation I have personally seen and examined this patient.: Yes I have fully participated in the care of the patient.: Yes I have reviewed all pertinent clinical information, including history, physical exam and plan: Yes Notes (Text): 03/12/17 19:58 Pt was seen and examined at bedside on 03/11/17 Agree with above note and assessment
[2017-03-11] MEDS: HYDROmorphone 1 mg/ml ISec IVP PRN (22:17)
--- NOTE | 2017-03-12 00:28 | PN ---
DATE: 03/11/2017 SUBJECTIVE: The patient is a 51-year-old female. Seen and examined early in the morning on the bedside. Sister was sitting on the bedside also. The patient was eating home food rice and chicken. Tolerating very well. No nausea , vomiting. Tolerating food very well. Passage of gas. No headache, no dizziness. Does not look like toxic. Happy to go home. PHYSICAL EXAMINATION: VITAL SIGNS: Temperature 97.8, pulse 80, respiratory rate 20, blood pressure 124/77, pulse oximetry 96. HEENT: Head normocephalic, atraumatic. Eyes PERRLA. Extraocular muscles intact. Conjunctivae pink. Eyelids unremarkable. Nose patent. Mucous membranes moist. NECK: Supple. No carotid bruit, JVD, thyromegaly. CHEST: Bilaterally symmetrical. HEART: S1, S2 positive. LUNGS: Clear to auscultation. ABDOMEN: Soft. Bowel sounds present. No organomegaly. EXTREMITIES: No edema, no cyanosis. NEUROLOGIC: The patient is awake, alert, moving all 4 extremities. No focal deficit. MEDICATIONS: Catapres, Lovenox, Pepcid, Dilaudid, Cozaar, Toprol, Zofran. LABORATORY DATA: White blood cells 14.6, hemoglobin 11.9, hematocrit 36.9, platelets 286. Sodium 141, potassium 3.4, BUN 15, creatinine 0.8, glucose 123. ASSESSMENT AND PLAN: The patient is a 51-year-old lady with leukocytosis, improving; hyperglycemia. Came with cholecystitis, cholelithiasis. Went for surgery. done lap cholecystectomy. Gangrenous gallbladder. Continue intravenous antibiotics. Leukocytosis is getting better. Advance diet as tolerated. Continue pain management, antiemesis. According to surgical team, discharge home tomorrow pending on normal white blood cells. Gastrointestinal and deep venous thrombosis prophylaxis. Repeat labs. We will follow up. Nikki Chino MD cc: [id number] TT: 03/12/2017 00:27:33 Confirmation # [id number] Dictation # [id number] sn MELO
[2017-03-12] MEDS: metroNIDAZOLE IV 500 mg/100 ml 500 MG/100 ML BAG IVPB SCH ×2 (00:37→05:12)
[2017-03-12 01:16] VITALS: O2SAT 94
[2017-03-12] MEDS: PIPERACILL IVPB SCH ×3 (03:37→14:38)
[2017-03-12] MEDS: DEX IVPB SCH ×3 (03:37→14:38)
[2017-03-12] MEDS: TAZO IVPB SCH ×3 (03:37→14:38)
[2017-03-12 07:37] LABS: HEMATOCRIT 36.2 % (34.0-47.0); MEAN CELL VOLUME 84.3 fL (81.0-99.0); MEAN CORPUSCULAR HEMOGLOBIN 27.4 pg (27.0-31.0); MEAN CORPUSCULAR HGB CONC 32.5 g/dL (33.0-37.0); MEAN PLATELET VOLUME 8.6 fL (7.2-11.7); RED CELL DISTRIBUTION WIDTH 13.5 % (11.5-14.5); WHITE BLOOD COUNT 9.1 K/uL (4.8-10.8)
[2017-03-12 07:51] LABS: CHLORIDE 103 mmol/L (98-107); POTASSIUM 3.6 mmol/L (3.6-5.2); SODIUM 140 mmol/L (132-148)
[2017-03-12 07:54] LABS: BLOOD UREA NITROGEN 14 mg/dL (7-17); CARBON DIOXIDE 27 mmol/L (22-30); GFR AFRICAN-AMERICAN > 60; GLUCOSE,RANDOM 92 mg/dL (65-105)
[2017-03-12 07:55] LABS: CALCIUM 8.3 mg/dl (8.6-10.4)
[2017-03-12 08:11] LABS: THYROID STIMULATING HORMONE 6.14 mIU/L (0.46-4.68)
[2017-03-12] MEDS: Metoprolol Succinate 50 mg XL Tab PO SCH ×2 (09:30→10:00)
[2017-03-12] MEDS: Enoxaparin 40 mg Syringe SC SCH (09:30)
--- NOTE | 2017-03-12 09:32 | CP.PCM.PN ---
<Thalia Dias - Last Filed: 03/12/17 09:34> Subjective - Date & Time of Evaluation Date of Evaluation: 03/12/17 Time of Evaluation: 07:00 - Subjective Subjective: GENERAL SURGERY PROGRESS NOTE FOR DR. NASSAR Patient seen and examined at bedside. She states that she only has abdominal pain when she moves a lot. She is ambulating and using her IS. She is tolerating her regular diet and denies nausea or vomiting. She is passing flatus. Objective - Vital Signs/Intake and Output Vital Signs (last 24 hours): Temp Pulse Resp BP Pulse Ox 97.9 F 72 20 155/92 H 94 L 03/12/17 08:16 03/12/17 08:16 03/12/17 08:16 03/12/17 08:16 03/12/17 08:16 Intake and Output: 03/12/17 03/12/17 06:59 18:59 Intake Total 650 Output Total 60 Balance 590 - Medications Medications: Current Medications Clonidine HCl (Catapres) 0.2 mg PO DAILY [facility] Last Admin: 03/11/17 10:33 Dose: Not Given Docusate Sodium (Colace) 100 mg PO BID [facility] Last Admin: 03/11/17 22:51 Dose: 100 mg Enoxaparin Sodium (Lovenox) 40 mg SC DAILY [facility] Last Admin: 03/11/17 10:50 Dose: 40 mg Famotidine (Pepcid) 40 mg PO DAILY [facility] Last Admin: 03/11/17 10:50 Dose: 40 mg Hydromorphone HCl (Dilaudid) 0.5 mg IVP Q6H PRN PRN Reason: Pain, severe (8-10) Last Admin: 03/11/17 22:17 Dose: 0.5 mg Piperacillin Sod/Tazobactam Sod (Zosyn 3.375 Gm Iv Premix) 3.375 gm in 50 mls @ 100 mls/hr IVPB Q6H [facility] Last Admin: 03/12/17 03:37 Dose: 100 mls/hr Metronidazole (Flagyl) 500 mg in 100 mls @ 100 mls/hr IVPB Q8 [facility] Last Admin: 03/12/17 05:12 Dose: 100 mls/hr Losartan Potassium (Cozaar) 100 mg PO DAILY [facility] Last Admin: 03/11/17 12:53 Dose: 100 mg Metoprolol Succinate (Toprol Xl) 50 mg PO BID [facility] Last Admin: 03/11/17 17:35 Dose: 50 mg Ondansetron HCl (Zofran Inj) 4 mg IVP Q4 PRN PRN Reason: Nausea/Vomiting - Labs Labs: 03/12/17 07:18 03/12/17 07:18 PT 10.8 SECONDS (9.7-12.2) 03/09/17 02:09 INR 1.0 03/09/17 02:09 - Constitutional Appears: Non-toxic, No Acute Distress - Head Exam Head Exam: ATRAUMATIC, NORMAL INSPECTION - Respiratory Exam Respiratory Exam: NORMAL BREATHING PATTERN. absent: Respiratory Distress - Cardiovascular Exam Cardiovascular Exam: +S1, +S2 - GI/Abdominal Exam GI & Abdominal Exam: Soft, Tenderness (mild tenderness around incision sites). absent: Distended, Firm, Guarding, Rigid, Rebound Additional comments: Dressings clean/dry/intact Ruben drain with 100cc serosanguinous output over past 24 hours - Neurological Exam Neurological Exam: Alert, Awake, Oriented x3 - Psychiatric Exam Psychiatric exam: Normal Affect, Normal Mood - Skin Skin Exam: Dry, Normal Color, Warm Assessment and Plan - Assessment and Plan (Free Text) Assessment: 51yo F with acute gangrenous cholecystitis s/p laparoscopic cholecystectomy POD# 2 - Leukocytosis resolved today, WBC 9.1 today - Clear for DC home from surgical standpoint - Ruben drain will remain in place - Patient is to follow up with Dr. Nassar in his office next week, he will remove the drain then - Patient is to record the amount of output from the drain and bring the amounts with her when she follows up in the office - Discussed plan with Dr. Cesario Dias PGY-2 <Grant Nassar B - Last Filed: 03/12/17 19:59> Objective - Vital Signs/Intake and Output Vital Signs (last 24 hours): Temp Pulse Resp BP Pulse Ox 97.6 F 70 18 119/77 94 L 03/12/17 15:25 03/12/17 15:25 03/12/17 15:25 03/12/17 15:25 03/12/17 15:25 Intake and Output: 03/12/17 03/13/17 18:59 06:59 Output Total 50 Balance -50 - Labs Labs: 03/12/17 07:18 03/12/17 07:18 PT 10.8 SECONDS (9.7-12.2) 03/09/17 02:09 INR 1.0 03/09/17 02:09 Attending/Attestation - Attestation I have personally seen and examined this patient.: Yes I have fully participated in the care of the patient.: Yes I have reviewed all pertinent clinical information, including history, physical exam and plan: Yes Notes (Text): 03/12/17 19:59 Pt was seen and examined at bedside on 03/12/17 Agree with above note and assessment F.U as out pt.
--- NOTE | 2017-03-12 13:16 | CP.PCM.CON ---
History of Present Illness - History of Present Illness History of Present Illness: INFECTIOUS DISEASE CONSULTATION; PATIENT SEEN, CHART REVIEWED LABS REVIEWED CONSULT DICTATED; . DICTATION #[id number]. Past Patient History - Past Medical History & Family History Past Medical History?: Yes - Past Social History Smoking Status: Never Smoked - CARDIAC Hx Hypertension: Yes - PULMONARY Hx Sleep Apnea: Yes - MUSCULOSKELETAL/RHEUMATOLOGICAL Hx Falls: No - PSYCHIATRIC Hx Substance Use: No - SURGICAL HISTORY Hx Section: Yes Hx Herniorrhaphy: Yes Hx Hysterectomy: Yes - ANESTHESIA Hx Anesthesia: Yes Hx Anesthesia Reactions: No Hx Malignant Hyperthermia: No Has any member of the family had a problem w/ anesthesia?: No Meds Allergies/Adverse Reactions: Allergies Allergy/AdvReac Type Severity Reaction Status Date / Time No Known Allergies Allergy Verified 03/09/17 01:31 - Medications Medications: Current Medications Clonidine HCl (Catapres) 0.2 mg PO DAILY [facility] Last Admin: 03/12/17 09:30 Dose: 0.2 mg Docusate Sodium (Colace) 100 mg PO BID [facility] Last Admin: 03/12/17 09:30 Dose: 100 mg Enoxaparin Sodium (Lovenox) 40 mg SC DAILY [facility] Last Admin: 03/12/17 09:30 Dose: 40 mg Famotidine (Pepcid) 40 mg PO DAILY [facility] Last Admin: 03/12/17 09:30 Dose: 40 mg Hydromorphone HCl (Dilaudid) 0.5 mg IVP Q6H PRN PRN Reason: Pain, severe (8-10) Last Admin: 03/11/17 22:17 Dose: 0.5 mg Piperacillin Sod/Tazobactam Sod (Zosyn 3.375 Gm Iv Premix) 3.375 gm in 50 mls @ 100 mls/hr IVPB Q6H [facility] Last Admin: 03/12/17 09:29 Dose: 100 mls/hr Metronidazole (Flagyl) 500 mg in 100 mls @ 100 mls/hr IVPB Q8 [facility] Last Admin: 03/12/17 05:12 Dose: 100 mls/hr Losartan Potassium (Cozaar) 100 mg PO DAILY [facility] Last Admin: 03/12/17 09:30 Dose: 100 mg Metoprolol Succinate (Toprol Xl) 50 mg PO BID [facility] Last Admin: 03/12/17 09:30 Dose: 50 mg Ondansetron HCl (Zofran Inj) 4 mg IVP Q4 PRN PRN Reason: Nausea/Vomiting Results - Vital Signs Recent Vital Signs: Last Vital Signs Temp 97.9 F 03/12/17 08:16 Pulse 72 03/12/17 08:16 Resp 20 03/12/17 08:16 BP 155/92 H 03/12/17 08:16 Pulse Ox 94 L 03/12/17 08:16 - Labs Result Diagrams: 03/12/17 07:18 03/12/17 07:18 Labs: Laboratory Results - last 24 hr 03/11/17 03/11/17 03/12/17 16:31 21:19 06:17 WBC RBC Hgb Hct MCV MCH MCHC RDW Plt Count MPV Sodium Potassium Chloride Carbon Dioxide Anion Gap BUN Creatinine Est GFR ( Amer) Est GFR (Non-Af Amer) POC Glucose (mg/dL) 175 H 126 H 113 H Random Glucose Calcium TSH 3rd Generation 03/12/17 03/12/17 03/12/17 07:18 07:18 11:01 WBC 9.1 RBC 4.29 Hgb 11.8 Hct 36.2 MCV 84.3 MCH 27.4 MCHC 32.5 L RDW 13.5 Plt Count 300 MPV 8.6 Sodium 140 Potassium 3.6 Chloride 103 Carbon Dioxide 27 Anion Gap 13 BUN 14 Creatinine 0.8 Est GFR ( Amer) > 60 Est GFR (Non-Af Amer) > 60 POC Glucose (mg/dL) 146 H Random Glucose 92 Calcium 8.3 L TSH 3rd Generation 6.14 H
[2017-03-12 15:29] VITALS: BP 119/77; PULSE 70; RESP 18; TEMP 97.6
--- NOTE | 2017-03-12 17:17 | CP.PCM.PN ---
Subjective - Date & Time of Evaluation Date of Evaluation: 03/12/17 Time of Evaluation: 17:17 - Subjective Subjective: alert, orientedx3, NAD. Objective - Vital Signs/Intake and Output Vital Signs (last 24 hours): Temp Pulse Resp BP Pulse Ox 97.6 F 70 18 119/77 94 L 03/12/17 15:25 03/12/17 15:25 03/12/17 15:25 03/12/17 15:25 03/12/17 15:25 Intake and Output: 03/12/17 03/12/17 06:59 18:59 Intake Total 650 Output Total 60 Balance 590 - Medications Medications: Current Medications Clonidine HCl (Catapres) 0.2 mg PO DAILY [facility] Last Admin: 03/12/17 09:30 Dose: 0.2 mg Docusate Sodium (Colace) 100 mg PO BID [facility] Last Admin: 03/12/17 09:30 Dose: 100 mg Enoxaparin Sodium (Lovenox) 40 mg SC DAILY [facility] Last Admin: 03/12/17 09:30 Dose: 40 mg Famotidine (Pepcid) 40 mg PO DAILY [facility] Last Admin: 03/12/17 09:30 Dose: 40 mg Hydromorphone HCl (Dilaudid) 0.5 mg IVP Q6H PRN PRN Reason: Pain, severe (8-10) Last Admin: 03/11/17 22:17 Dose: 0.5 mg Piperacillin Sod/Tazobactam Sod (Zosyn 3.375 Gm Iv Premix) 3.375 gm in 50 mls @ 100 mls/hr IVPB Q6H [facility] Last Admin: 03/12/17 14:38 Dose: 100 mls/hr Metronidazole (Flagyl) 500 mg in 100 mls @ 100 mls/hr IVPB Q8 [facility] Last Admin: 03/12/17 05:12 Dose: 100 mls/hr Losartan Potassium (Cozaar) 100 mg PO DAILY [facility] Last Admin: 03/12/17 09:30 Dose: 100 mg Metoprolol Succinate (Toprol Xl) 50 mg PO BID [facility] Last Admin: 03/12/17 09:30 Dose: 50 mg Ondansetron HCl (Zofran Inj) 4 mg IVP Q4 PRN PRN Reason: Nausea/Vomiting - Labs Labs: 03/12/17 07:18 03/12/17 07:18 PT 10.8 SECONDS (9.7-12.2) 03/09/17 02:09 INR 1.0 03/09/17 02:09 Assessment and Plan - Assessment and Plan (Free Text) Assessment: Patient s/p diaz dora, discharged home as per DR Chino, cleared by surgery. Alert, orientedx3, no acute pain.To follow up in the surgery office in 1 week for drainage tube removal. RX given for cipro and flagyl for 1 week.
--- NOTE | 2017-03-13 00:11 | CON ---
DATE: 03/12/2017 REQUESTING PHYSICIAN: Dr. Chino. REASON FOR CONSULTATION: Abdominal pain, cholelithiasis and cholecystitis, status post laparoscopic cholecystectomy. HISTORY OF PRESENT ILLNESS: The patient is a 51-year-old female with a significant past medical hist ory of hypertension, obstructive sleep apnea and morbid obesity who presented to the ER on 03/09 with complaints of abdominal pain which started that same evening after she ate some food. She noted jennifer t the pain was stabbing in nature and radiated from the epigastrium toward the right upper quadrant a nd left upper quadrant. She also admitted to nausea and 2 episodes of bilious emesis. CT scan of th e abdomen showed cholelithiasis and some gall bladder thickening. No ductile abnormalities were note d. LFTs were unremarkable at that time. Lipase came back to within normal limits. She also was the n sent for an ultrasound of the abdomen, which showed acute cholecystitis with positive Sood sign. The patient underwent laparoscopic cholecystectomy on 03/10 and was found to have a gangrenous gallb ladder. Also, postoperative day, she was found to have increased leukocytosis. The patient was empi rically started on IV Zosyn by the primary physician, Dr. Chino, 3.375 q. 8 hourly. Infectious dise ase consultation was requested because of increasing leukocytosis postoperatively. PAST MEDICAL HISTORY: As above. The patient has history of hypertension, obstructive sleep apnea, t anup she does not use any machine at home. PAST SURGICAL HISTORY: Consists of total abdominal hysterectomy and and hernia repair. SOCIAL HISTORY: She denies smoking or drinking or use of illicit drugs. FAMILY HISTORY: Significant for coronary artery disease as per her dad. REVIEW OF SYSTEMS: Presently, the patient is postoperative day 1, has mild abdominal pain and Jackso n-Zelaya in place. Denies any nausea, vomiting and. LUNGS: Denies any shortness of breath or cough. CARDIOVASCULAR SYSTEM: Denies any chest pains or palpitations. GASTROINTESTINAL: As reported postoperative pain and some bloating, Omar-Zelaya in place. GENITOURINARY: Unremarkable. No frequency. No dysuria. CENTRAL NERVOUS SYSTEM: Awake, alert: Moves all extremities. Reflexes are equal and symmetrical. The rest of the review of systems is unremarkable. PHYSICAL EXAMINATION: GENERAL: The patient is awake, alert, not in any acute distress. Morbidly obese. VITAL SIGNS: The patient's temperature 97.9, blood pressure 155/92, respirations 20, pulse of 72, pu lse ox is 94%. HEENT: Pupils equal, reactive to light and accommodation. Extraocular movements full. Fundus negat wilfredo. Sclerae nonicteric. Conjunctivae normal. JVP not elevated. NECK: Appears to be supple. LUNGS: Diminished breath sounds, but clear. CARDIOVASCULAR SYSTEM: S1, S2 normal, heart rate of 72. ABDOMEN: Soft. Omar-Zelaya in place, is draining serosanguineous drainage. Bowel sounds hypoacti ve, though present. Site of operation unremarkable. Dressing in place. EXTREMITIES: No cyanosis, clubbing or edema. CENTRAL NERVOUS SYSTEM: No gross deficits. Moves all extremities. LABORATORY DATA: WBC has decreased from 14.6 to 9.1. Hemoglobin is stable at 11.8 and 36.2, platele ts 300. Creatinine 0.8, BUN 14. Liver function tests on 03/11: AST 26, ALT 22, bilirubin 0.8, mabel line phosphatase 95. LFTs today, not performed. is slightly elevated to 6.14. Blood cultures are so far negative growth to date. Radiology reviewed. IMPRESSION: 1. The patient is seen postoperatively status post laparoscopic cholecystectomy with gangrenous gall bladder on 03/10/17. 2. Hypertension. 3. Obstructive sleep apnea. PLAN: Surgery has already seen the patient today and states patient can be discharged. The patient is tolerating clear liquids and some soft food. Okay to discontinue IV antibiotics and patient to be discharged on p.o. Cipro 500 b.i.d. for 8 days and p.o. Flagyl 500 q. 8 hourly. Follow up cultures and follow up Omar-Zelaya drainage with surgery as recommended. Thank you very much for allowing me to participate in the care of your patient. The case discussed w ith the staff and the RN. Yulia Grey MD cc: [id number] TT: 03/13/2017 00:10:06 Confirmation # [id number] Dictation # [id number] flaco
--- NOTE | 2017-03-18 09:40 | DS ---
CONTINUATION PHYSICAL EXAMINATION: VITAL SIGNS: Temperature 97.6, pulse 70, blood pressure 119/77, respiratory rate 18. HEENT: Head normocephalic, atraumatic. Eyes: PERRLA. Extraocular muscles intact. Conjunctivae pi nk. Eyelids unremarkable. Nose patent. Mucous membranes moist. NECK: Supple. No carotid bruit, JVD or thyromegaly. CHEST: Bilaterally symmetrical. HEART: S1, S2 positive. LUNGS: Clear to auscultation. ABDOMEN: Soft. Bowel sounds present. No organomegaly. EXTREMITIES: No edema, no cyanosis. NEUROLOGIC: The patient is awake, alert. Moving all 4 extremities. No focal deficit. LABORATORY DATA: White blood cells 9.1, hemoglobin 11.4, hematocrit 36.2, platelets 300. Sodium 140 , potassium 3.6, BUN 14, creatinine 0.8. Glucose 151, 146. ASSESSMENT AND PLAN: The patient is a 51-year-old lady with leukocytosis, improved; diabetes mellitu s, uncontrolled; hypocalcemia with history of hypertension, obstructive sleep apnea syndrome, who cam e with abdominal pain, came to know has cholecystitis. Dr. Nassar did laparoscopic cholecystecto my with gangrenous gallbladder on 03/10/2017. The patient was given diet, tolerated that. Seen by Young Grey and she discontinued the IV antibiotic and planned to discharge the patient on Cipro 5 00 mg p.o. b.i.d. for 8 days and Flagyl 500 q. 8 hourly for 8 days. Follow up cultures and follow up Omar-Zelaya drainage with surgery is recommended. Appreciated Dr. Yulia Grey's input. The patie nt was discharged by Christine Darling, nurse practitioner. The patient was cleared by surgery. Oriented x 3. No acute pain. Plan was for patient to follow up with surgery after 1 week for drainage tube removal. Prescription of Cipro and Flagyl was given to the patient by Christine nurse practitioner. e patient will follow up with her own primary care physician. Education was done. Nikki Chino MD cc: [id number] TT: 03/18/2017 09:40:12 mn
--- NOTE | 2017-03-18 10:12 | DS ---
CHIEF COMPLAINT: Abdominal pain. HISTORY OF PRESENT ILLNESS: The patient is a 51-year-old female who came to the Emergency Room of [facility] complaining of nausea and vomiting and sharp abdominal pain, like stabbing. No fever, no chills, no diarrhea, no hematuria, no hematochezia. We admitted the patient and did a CAT scan of abdomen and pelvis. Seen by Dr. Yogi Ellison for abdominal pain. Cholecystectomy done by Dr. Irina Nassar because the gallbladder was necrosed. White blood cell was high. Consult was called with Dr. Yulia Grey. She saw the patient and gave antibiotics. The patient felt better. Discharg ed on 03/12/2017. PAST MEDICAL HISTORY: Hypertension, sleep apnea. FAMILY HISTORY: Father and mother noncontributory. HABITS: No smoking, no drugs, no ethanol. ALLERGIES: The patient is not allergic with any medications. HOME MEDICATIONS: Reviewed by me. REVIEW OF SYSTEMS: The patient seen and examined on the bedside. Looks comfortable. No nausea, vom iting, or diarrhea. No hematuria or hematochezia. No swelling of the legs. No chest pain, no palpi tation. [place] better. PHYSICAL EXAMINATION: VITAL SIGNS: Temperature 97.6, pulse 70, blood pressure 119/77, respiratory rate 18, oxygen saturati on 94. HEENT: Head normocephalic, atraumatic. Eyes: PERRLA. Extraocular muscles intact. Conjunctivae pi nk. Eyelids unremarkable. Nose patent. Mucous membranes moist. NECK: Supple. No carotid bruit, JVD or thyromegaly. CHEST: Bilaterally symmetrical. HEART: S1, S2 positive. LUNGS: Clear to auscultation. ABDOMEN: Soft. Bowel sounds present. No organomegaly. EXTREMITIES: No edema, no cyanosis. NEUROLOGIC: The patient is awake, alert. Moving all 4 extremities. No focal deficit. LABORATORY DATA: White blood cells 9.1, hemoglobin 11.4, hematocrit 36.2, platelets 300. Sodium 140 , potassium 3.6, BUN 14, creatinine 0.8. Glucose 151, 146. ASSESSMENT AND PLAN: The patient is a 51-year-old lady with leukocytosis, improved; diabetes mellitu s, uncontrolled; hypocalcemia with history of hypertension, obstructive sleep apnea syndrome, who cam e with abdominal pain, came to know has cholecystitis. Dr. Nassar did laparoscopic cholecystecto my with gangrenous gallbladder on 03/10/2017. The patient was given diet, tolerated that. Seen by Young Grey and she discontinued the IV antibiotic and planned to discharge the patient on Cipro 5 00 mg p.o. b.i.d. for 8 days and Flagyl 500 q. 8 hourly for 8 days. Follow up cultures and follow up Omar-Zelaya drainage with surgery is recommended. Appreciated Dr. Yulia Grey's input. The patie nt was discharged by Christine Darling, nurse practitioner. The patient was cleared by surgery. Oriented x 3. No acute pain. Plan was for patient to follow up with surgery after 1 week for drainage tube removal. Prescription of Cipro and Flagyl was given to the patient by Christine nurse practitioner. Th e patient will follow up with her own primary care physician. Education was done. Nikki Chino MD cc: [id number] TT: 03/18/2017 09:30:09 mn 03/18/2017 09:10:28
--- NOTE | 2017-03-25 13:10 | CARD ---
APPROVED REPORT EKG Measurement Heart [id number] <Conclusion> Normal sinus rhythm Normal ECG
== END 2017-03-12 17:15 | disposition home or self-care (01) | DRG 493 ==
LOC: C.ER 01:18 → C.9E 06:26 → C.5T 12:35
PROVIDERS: ADMIT Internal Medicine; ATTEND Internal Medicine
PROC: 0FT44ZZ Resection of Gallbladder, Percutaneous Endoscopic Approach (ICD-10-PCS; principal; 2017-03-10 13:12)
DX: K80.00 Calculus of gallbladder with acute cholecystitis without obstruction (principal); E11.65 Type 2 diabetes mellitus with hyperglycemia; I10 Essential (primary) hypertension; E83.51 Hypocalcemia; E66.01 Morbid (severe) obesity due to excess calories; G47.33 Obstructive sleep apnea (adult) (pediatric); K82.8 Other specified diseases of gallbladder; I16.0 Hypertensive urgency; K59.00 Constipation, unspecified; M19.90 Unspecified osteoarthritis, unspecified site; Z82.49 Family history of ischemic heart disease and other diseases of the circulatory system